=== PATIENT | male | born 1995 | race African-American/Black ===

== ENCOUNTER 2021-11-06 20:32 | Emergency (ER) | payer OTHER ==
[2021-11-06 20:49] VITALS: BP 103/61; PULSE 82; TEMP 100.4; BMI 32.5
[2021-11-06] MEDS ORDERED: IBUPROFEN 600 MG TABLET (FP) PO ONE ×2 (23:04→23:14)
[2021-11-06] MEDS ORDERED: ACETAMINOPHEN 325 MG TABLET (FP) PO ONE (23:04)
[2021-11-06] MEDS ORDERED: ACETAMINOPHEN 325 MG TABLET (FP) ONE (23:14)
== END 2021-11-06 23:50 | disposition home or self-care (01) ==
LOC: JER 20:32
DX: U07.1 COVID-19 (principal)
CPT/HCPCS: 0241U-QW; 99283-25